=== PATIENT | male | born 1995 | race Caucasian/White ===

== ENCOUNTER 2017-05-23 03:29 | Emergency (ER) | payer SELFPAY ==
[~2017-05-23] VITALS: Ht 170.2 cm; Wt 140.0 kg
[~2017-05-23 03:29] MED LIST: ABIL5TAB PO; ALBU6.7H INH; CLAR10TA7 PO; OMEGCAP21 PO; PRIL40CA PO; WELLTAB39 PO
[2017-05-23 03:31] VITALS: BP 147/72; PULSE 75; RESP 16; TEMP 97.6; O2SAT 97
[2017-05-23] MEDS ORDERED: OMEP40CA2 PO (04:08)
[2017-05-23] MEDS ORDERED: ALBU6.7H INH (04:08)
[2017-05-23] MEDS ORDERED: IBUPROFEN 600 MG TAB PO ONE (04:15)
[2017-05-23] MEDS ORDERED: diphenhydrAMINE HCL 50 MG/ML VIAL IM ONE (04:15)
[2017-05-23] MEDS ORDERED: PROCHLORPERAZINE INJ 10 MG/2 ML VIAL IM ONE (04:15)
--- NOTE | 2017-05-23 04:25 | PD ---
HPI Chief Complaint: Headache Time Seen by Provider: 03:58 Travel History International Travel<30 days: No Contact w/Intl Traveler<30days: No Traveled to known affect area: No History of Present Illness HPI Patient is a 21-year-old male with a history of migraines which are usually generalized presents emergency Department with right-sided headache for the past 3-4 hours. Patient states same intensity as normally as his headaches but again it is more localized. States she's also having some audiophobia. Denies any focalized deficit denies any visual deficit denies any fevers. States he hasn't tried anything prior to arrival. Denies any chest pain shortness of breath abdominal pain nausea vomiting. PFSH Past Medical History Asthma: Yes Bipolar Disorder: Yes Anxiety: Yes Depression: Yes Developmental Delay: No Diminished Hearing: No Gastrointestinal Disorders: Yes (GERD) GERD: Yes Headaches: Yes Medical other: Yes (Scheuermann's disease of the spine) Psychiatric: Yes (MOOD DISORDER) Respiratory: Yes (Asthma) Immunizations Current: Yes Migraines: Yes (last migraine 05/10/17) Tetanus Vaccination: > 5 Years Influenza Vaccination: No Past Surgical History Pacemaker: No Tympanostomy Tube: Yes Other Surgery: Yes (ADENOIDS REMOVED) Social History Alcohol Use: No Tobacco Use: No Substance Use: No Allergies-Medications (Allergen,Severity, Reaction): Coded Allergies: amoxicillin (Unverified Allergy, Severe, SWELLING, HIVES, 04/23/17) clavulanic acid (Unverified Allergy, Severe, SWELLING, HIVES, 04/23/17) Reported Meds & Prescriptions Reported Meds & Active Scripts Active Fioricet (Xsisvsgxui-Tmxxmenhorqmb-Mdelpkhw) 50-300-40 Mg Cap 1 Cap PO Q6H PRN Reported Omeprazole 40 Mg Cap 40 Mg PO DAILY Proventil Hfa 6.7 GM Inh (Albuterol Sulfate) 90 Mcg/Act Aer 2 Puff INH Q4-6H PRN Review of Systems Except as stated in HPI: all other systems reviewed are Neg Physical Exam Narrative GENERAL: Well-developed well-nourished no obvious distress SKIN: Focused skin assessment warm/dry. HEAD: Atraumatic. Normocephalic. EYES: Pupils equal and round. No scleral icterus. No injection or drainage. No papilledema bilaterally on funduscopy. ENT: No nasal bleeding or discharge. Mucous membranes pink and moist. NECK: Trachea midline. No JVD. CARDIOVASCULAR: Regular rate and rhythm. No murmur appreciated. RESPIRATORY: No accessory muscle use. Clear to auscultation. Breath sounds equal bilaterally. GASTROINTESTINAL: Abdomen soft, non-tender, nondistended. Hepatic and splenic margins not palpable. MUSCULOSKELETAL: No obvious deformities. No clubbing. No cyanosis. No edema. NEUROLOGICAL: Awake and alert. Cranial nerves II through XII are grossly intact and nonfocal, 5 out of 5 strength in all 4 extremity's. Normal speech. PSYCHIATRIC: Appropriate mood and affect; insight and judgment normal. Data Data Last Documented VS Vital Signs Date Time Temp Pulse Resp B/P (MAP) Pulse Ox O2 Delivery O2 Flow Rate FiO2 05/23/17 05:47 85 16 128/76 (93) 99 05/23/17 03:55 Room Air 05/23/17 03:31 97.6 Orders Orders Ibuprofen (Motrin) (05/23/17 04:15) Diphenhydramine Inj (Benadryl Inj) (05/23/17 04:15) Prochlorperazine Inj (Compazine Inj) (05/23/17 04:15) MDM Medical Decision Making Medical Screen Exam Complete: Yes Emergency Medical Condition: Yes Differential Diagnosis Cluster headache, migraine headache, tension headache, emergent pathology unlikely. Narrative Course Patient roomed in the emergency department, he was given ibuprofen 600 mg, Benadryl IM and Compazine IM. He was feeling better well enough to go home. Inform the patient I highly doubt significant pathology. Discussed symptomatic management at home follow-up the primary care physician and return to ED criteria. Diagnosis Primary Impression: Headache Qualified Codes: R51 - Headache Med/Other Pt SpecificInfo: Prescription(s) given Scripts Cyknlpysfp-Tufktnbxsrgyj-Bxnjscur (Fioricet) 50-300-40 Mg Cap 1 CAP PO Q6H Y for HEADACHE, #20 CAP 0 Refills Prov: Taran Loza MD 05/23/17 Disposition: 01 DISCHARGE HOME Condition: Stable Taran Loza MD May 23, 2017 04:25
[2017-05-23] MEDS ORDERED: BUTA1CAP PO (05:31)
[2017-05-23 05:47] VITALS: BP 128/76
== END 2017-05-23 05:55 | disposition home or self-care (01) ==
LOC: NEPE 03:29
DX: R51 Headache (principal); J45.909 Unspecified asthma, uncomplicated; F31.9 Bipolar disorder, unspecified; F41.9 Anxiety disorder, unspecified; K21.9 Gastro-esophageal reflux disease without esophagitis; M42.00 Juvenile osteochondrosis of spine, site unspecified; F39 Unspecified mood [affective] disorder; Z79.899 Other long term (current) drug therapy; Z88.0 Allergy status to penicillin
CPT/HCPCS: 96372; 99284; J0780; J1200